=== PATIENT | female | born 1990 | race Hispanic/Latino ===

== ENCOUNTER 2021-09-12 02:16 | Emergency (ER) | payer BC ==
[2021-09-12 02:33] VITALS: BP 122/89
[2021-09-12] MEDS ORDERED: KETOROLAC 30 MG/1 ML INJ IV ONE (08:24)
[2021-09-12] MEDS ORDERED: GABAPENTIN 300 MG CAP PO ONE (08:24)
--- NOTE | 2021-09-12 08:25 | Emergency Department Report ---
ED Dysuria HPI - HPI Chief Complaint: Abdominal Pain Stated Complaint: ABD PAIN Time Seen by Provider: 09/12/21 08:23 Duration: 1 Day Location of Discomfort: Suprapubic Severity: Mild Symptoms: Dysuria: Yes, Frequency: Yes, Suprapubic Pain: Yes, Flank Pain: Yes, Fever: No, Hematuria: Yes, Abdominal Pain: No, Previous UTI's: Yes Other History: Patient is a 30-year-old female that [place] airport. She states she has acute on chronic kidney stones. At the time that I saw her she had been in the waiting room for about 8 hours. She was in route to a [facility]. Her father is in [place]. Her is up north in [place]. He is in the . Patient has a long psychiatric history and has been in and out the hospital for years. She states that her new therapist felt that this long-term therapy was best for her. She was placed on a plane and sent by herself. She denies HI or SI. At the airport she developed acute right flank pain. She has a history of kidney stones. So EMS brought her to the emergency room. By the time I saw her she said the pain was gone and that she wanted to leave. She is cooperative, ambulatory, taking p.o. She has been in contact with her father via phone. She showed me her [employer] jean that indicates she has a flight at 1230. She plans on [employer] back to the airport. I have no reason to hold the patient against her will. She states that she feels better. So she is being discharged. I have asked the nurse to see her to the over so that she get to the airport. ED Review of Systems ROS: Stated complaint: ABD PAIN Other details as noted in HPI Comment: All other systems reviewed and negative ED Past Medical Hx - Past Medical History Previous Medical History?: Yes Hx Hypertension: No Hx CVA: No Hx Heart Attack/AMI: No Hx Congestive Heart Failure: No Hx Diabetes: No Hx Deep Vein Thrombosis: No Hx Pulmonary Embolism: No Hx GERD: No Hx Liver Disease: No Hx Renal Disease: No Hx of Cancer: No Hx Sickle Cell Disease: No Hx Arthritis: No Hx Headaches / Migraines: No Hx Seizures: Yes Hx Kidney Stones: Yes Hx Psychiatric Treatment: Yes Hx Asthma: No Hx COPD: No Hx Tuberculosis: No Hx Dementia: No Hx HIV: No - Surgical History Past Surgical History?: Yes - Family History Family history: no significant - Social History Smoking Status: Former Smoker Substance Use Type: Alcohol Dysuria Exam - Exam General: Vital signs noted. No distress. Alert and acting appropriately. Exam: Yes Moist Mucous Membranes, No CVA Tenderness, No Abdominal Tenderness, No Rigidity or Guarding Exam: Heart rate on provider exam 90 ED Course Vital Signs 09/12/21 02:30 Temperature 98.3 F Pulse Rate 109 H Respiratory 18 Rate Blood Pressure 122/89 [Right] O2 Sat by Pulse 99 Oximetry ED Medical Decision Making - Medical Decision Making Vital Signs 09/12/21 02:30 Temperature 98.3 F Pulse Rate 109 H Respiratory 18 Rate Blood Pressure 122/89 [Right] O2 Sat by Pulse 99 Oximetry Patient was medicated with Toradol IM. She was also given her a.m. dose of gabapentin. She does not have her bag with her, she left and in the airport when the ambulance brought her to the ER. She has been in contact with the [employer] sales representative since have seen her. On discharge patient is ambulatory, not ill, nontoxic and in no acute distress. She denies HI and SI. She is taking p.o. The nurses assisted her to the [employer] car that is waiting for her out front. - Differential Diagnosis Acute on chronic kidney stones Critical care attestation.: If time is entered above; I have spent that time in minutes in the direct care of this critically ill patient, excluding procedure time. ED Disposition Clinical Impression: History of kidney stones Disposition: HOME / SELF CARE / HOMELESS Is pt being admited?: No Does the pt Need Aspirin: No Condition: Stable Instructions: Abdominal Pain (ED) Referrals: [facility] [Other] - 3-5 Days Time of Disposition: 08:24
== END 2021-09-12 08:50 | disposition home or self-care (01) ==
LOC: ED 02:16
DX: R30.0 Dysuria (principal); R10.30 Lower abdominal pain, unspecified; Z87.891 Personal history of nicotine dependence; Z72.89 Other problems related to lifestyle; Z88.8 Allergy status to other drugs, medicaments and biological substances; Z88.5 Allergy status to narcotic agent; Z87.442 Personal history of urinary calculi
CPT/HCPCS: 96374; 99283; J1885